=== PATIENT | male | born 1985 | race Caucasian/White ===

== ENCOUNTER 2019-01-09 14:19 | Outpatient (CLI) | payer OTHER ==
[2019-01-09 15:20] VITALS: BP 114/74
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
== END 2019-01-09 14:20 | disposition home or self-care (01) ==
LOC: SC 14:19
PROVIDERS: ATTEND Internal Medicine Pulmonary Disease
DX: G47.33 Obstructive sleep apnea (adult) (pediatric) (principal)
CPT/HCPCS: 99203; 99212

== ENCOUNTER 2019-03-15 13:41 | Outpatient (CLI) | payer OTHER ==
[2019-03-15 14:54] VITALS: BP 114/78
--- NOTE | 2019-03-15 14:54 | SLEEP CARE CONSULTATION ---
Information from patient questionnaire entered by Pat Villa. I have reviewed and concur with the information entered by Pat Villa. This document represents the service I personally performed and the decisions made by me, Yudith Diaz, RN, MSN, [employer]. History of Present Illness Previous diagnosis: Severe, Obstructive Sleep Apnea-Hypopnea Syndrome AHI: 39 Reason for CPAP/BiPAP follow up: first compliance after device update Equipment type: CPAP Equipment obtained from: [employer] Mask style: Full face Mask brand: Respironics (Dreamwear) Backup mask available: Yes Last cushion change: last night CPAP Compliance Data - Data Reviewed with Patient Average duration of nightly device use: 6.2 Compliance rate %: 100 Current pressure setting (cmH2O): 5-10 Humidity settin Heated hose settin Average residual AHI: 7.5 Central apnea: 0.9 Obstructive apnea: 2.9 Hypopnea: 3.7 Average large leak: zero Subjective Patient concerns: reports: nasal congestion ( recently), dry mouth, nose, throat (intermittent mouth dryness ). denies: aerophagia, mask discomfort, air blowing in eyes, mask leak noise, condensation in mask/hose, epistaxis Observed to snore while using device: No Current pressure setting perceived as: comfortable On therapy, patient: reports: sleeping better, more rested overall ( but intermittent fatigue. ). denies: drowsiness while driving Initial [place] Sleepiness Scale score: 7 Current [place] Sleepiness Scale score: 5 Allergies and Home Medications Known drug allergies: No Home medication list reviewed: Yes (anti inflammantory ointment prn for back beatriz n) Review of Systems Review of systems same as previous: Yes Physical Exam Blood Pressure: 114/78 Cuff size: long Heart Rate: 63 O2 Saturation: 98 Height: 6 ft Weight (kg): 230 lb Body Mass Index: 31.1 BMI Classification: Class 1 Impression and Plan 1. Obstructive Sleep Apnea-Hypopnea Syndrome, severe, with good treatment compliance but elevated residual AHIl. On CPAP therapy, the patient has better sleep quality and is more rested overall. For residual AHI, I will adjust his pressure tp [id number]. He was instructed to use ramp at initiation if needed. In addition, he was advised to contact this office if pressure change uncomfortable. For oral dryness, he is advised to increase humidity and or reduce heated hose. For his intermittent fatigue, I advised him to strive for a minimum of 7 hours of sleep. Currently he is averaging about 6 hours with CPAP. Patient's apnea severity and rationale for treatment to reduce apnea, improve sleep quality and reduce cardiovascular and cerebrovascular events was reviewed. He likes to camp and states he is not always able to use his CPAP. I checked his last sleep study and it does not show position of sleep. I discussed CPAP battery options. * * Change autoCPAP pressure to 10-15 cmH2O * Adjust humidity/heated hose * Notify me if snoring with mask or feeling that the pressure is too much or too little * obtain more sleep * Return for follow up in 2 months , or sooner if concerns arise I spent 100% of this [15][30] minute visit face to face with the patient with greater than 50% of this was spent time counseling the patient and coordination of care.
== END 2019-03-15 13:42 | disposition home or self-care (01) ==
LOC: SC 13:41
PROVIDERS: ATTEND Nurse Practitioner Family
DX: G47.33 Obstructive sleep apnea (adult) (pediatric) (principal)
CPT/HCPCS: 99212; 99214

== ENCOUNTER 2019-05-16 15:09 | Outpatient (CLI) | payer OTHER ==
--- NOTE | 2019-05-16 16:43 | SLEEP CARE CONSULTATION ---
Information from patient questionnaire entered by Danielle Pena. I have reviewed and concur with the information entered by Danielle Pena. This document represents the service I personally performed and the decisions made by me, Yudith Diaz, RN, MSN, [employer]. History of Present Illness Previous diagnosis: Severe, Obstructive Sleep Apnea-Hypopnea Syndrome AHI: 39 Reason for follow up: other (2 month -) Equipment type: CPAP Equipment obtained from: [employer] Mask style: Full face Mask brand: Respironics ([place]) Backup mask available: Yes Last cushion change: 3 weeks ago Prior sleep studies: Yes HPI additional information: The CPAP pressure was increased for elevated residual. However, it was waking patient to burping and mild abdominal distention even with use of ramp. Thus it was reduced to [id number] and is now comfortable and no further aerophagia. CPAP Compliance Data - Data Reviewed with Patient Average duration of nightly device use: 5h 46m Compliance rate %: 86.7 Current pressure setting (cmH2O): 8-10 Humidity settin Heated hose settin Average residual AHI: 4.8 (the last 2 weeks at lower pressure AHI is 6.0) Average large leak: 8s Subjective Missed days of use due to: reports: other (falling asleep without CPAP.) Patient concerns: reports: aerophagia (resolved with lower pressure ). denies: mask discomfort, air blowing in eyes, mask leak noise, condensation in mask/hose, nasal congestion, dry mouth, nose, throat, epistaxis Observed to snore while using device: No Current pressure setting perceived as: comfortable On therapy, patient: reports: sleeping better, awakening more refreshed, being more awake and alert during the day, more rested overall. denies: drowsiness while driving Initial [place] Sleepiness Scale score: 7 Current [place] Sleepiness Scale score: 5 Allergies and Home Medications Known drug allergies: No Home medication list reviewed: Yes Allergy and home medication list: Topical cream for back pain as needed. Review of Systems Review of systems same as previous: Yes (neck pain that was evaluated and manipulated with temporary relief. ) Physical Exam Blood Pressure: 110/80 Cuff size: long Heart Rate: 74 O2 Saturation: 98 Height: 6 ft 0.25 in Weight: 235 lb 9.6 oz (with boots / fatigues) Body Mass Index: 31.7 BMI Classification: Obesity Class 1 Impression and Plan 1. Obstructive Sleep Apnea-Hypopnea Syndrome, severe, with good treatment compliance and slightly elevated residual AHI. As noted in HPI, the pressure range was increased to lower residual AHI at last visit but caused discomfort from aerophagia. Current pressure has very mild increase in residual AHI at 6 which is significantly less than his HST average of 39. On CPAP therapy, the patient has better sleep quality and is more rested overall. To prevent from falling asleep without CPAP, he is advised to consider a bedtime alarm to wake him. He is more rested with more sleep. Thus he is advised to go to bed a little earlier a night with goal of obtaining a minimum of 7 hours, not 6 hours . Patient agreed with plan. Patient's apnea severity and rationale for treatment to reduce apnea, improve sleep quality and reduce cardiovascular and cerebrovascular events was reviewed. * Continue CPAP pressure at 8-10 cmH2O * obtain more sleep * bedtime alarm * Notify me if snoring with mask or feeling that the pressure is too much or too little * Attempt to lose weight * Return for follow up in 1 year , or sooner if concerns arise I spent 100% of this 27 minute visit face to face with the patient with greater than 50% of this was spent time counseling the patient and coordination of care.
[2019-05-16 16:44] VITALS: BP 110/80
== END 2019-05-16 15:10 | disposition home or self-care (01) ==
LOC: SC 15:09
PROVIDERS: ATTEND Nurse Practitioner Family
DX: G47.33 Obstructive sleep apnea (adult) (pediatric) (principal); E66.9 Obesity, unspecified; Z68.31 Body mass index [BMI] 31.0-31.9, adult
CPT/HCPCS: 99212; 99214

== ENCOUNTER 2020-05-29 15:09 | Outpatient (CLI) | payer OTHER ==
--- NOTE | 2020-05-29 15:37 | SLEEP CARE CONSULTATION ---
Information from patient questionnaire entered by Katie Reyna. I have reviewed and concur with the information entered by Katie Reyna. This document represents the service I personally performed and the decisions made by , Shae Servin ARNP. History of Present Illness Service Date and Time: 05/29/2020 1509 Previous diagnosis: Severe, Obstructive Sleep Apnea-Hypopnea Syndrome AHI: 39 Reason for follow up: annual (last seen 05/2019) Equipment type: CPAP Equipment obtained from: Other ([facility]; getting supplies as needed) Mask style: Full face Backup mask available: Yes (other mask) Last cushion change: 1 month Prior sleep studies: Yes Year and Where: 2007 [facility] HPI additional information: GARRETT HAY was diagnosed to have severe, AHI 39, obstructive sleep apnea- hypopnea syndrome and returned today for CPAP therapy annual follow-up. Sleep Study - Results Prior sleep studies: Yes CPAP Compliance Data - Data Reviewed with Patient Average duration of nightly device use: 4 h 17 min Compliance rate %: 60 Current pressure setting (cmH2O): 8-10 Humidity settin Heated hose settin Average residual AHI: 6.6 Average large leak: 50 sec Subjective Missed days of use due to: reports: travel Patient concerns: reports: aerophagia (sometimes). denies: mask discomfort, air blowing in eyes, mask leak noise, condensation in mask/hose, nasal congestion, dry mouth, nose, throat, epistaxis, other Observed to snore while using device: No Current pressure setting perceived as: comfortable On therapy, patient: reports: sleeping better, awakening more refreshed, being more awake and alert during the day, more rested overall. denies: drowsiness while driving Initial [place] Sleepiness Scale score: 7 (in 2019) Current [place] Sleepiness Scale score: 6 Allergies and Home Medications Home medication list reviewed: Yes (no changes) Review of Systems Review of systems same as previous: Yes (no changes) Physical Exam Heart Rate: 61 O2 Saturation: 98 Height: 6 ft 0.25 in Weight: 221 lb Body Mass Index: 29.7 BMI Classification: Overweight Impression and Plan 1. Obstructive Sleep Apnea-Hypopnea Syndrome, severe, with fair treatment compliance and fair apnea control with mildly elevated residual AHI. On CPAP therapy, the patient has better sleep quality and is more rested overall. The patients pressure will be changed to autoCPAP 9-12 cmH20 For elevation of residual AHI. Patient advised to contact me if pressure change is uncomfortable so that it can be adjusted. Goals for apnea control discussed. Patient's apnea severity and rationale for treatment to reduce apnea, improve sleep quality and reduce cardiovascular and cerebrovascular events was reviewed. * Changeauto CPAP pressure to 9-12 cmH2O * Notify me if snoring with mask or feeling that the pressure is too much or too little * Attempt to lose weight * Call this office if any problems using CPAP * Return for follow up in 1-2 months, or sooner if concerns arise Counseling Topics: Spare mask, Weight loss health impact Visit Type: In Office Time Spent with Patient (minutes): 19 Provider Statement: I spent 100% of the Face to Face Visit with the patient with greater than 50% spent counseling the patient and coordination of care.
== END 2020-05-29 15:10 | disposition home or self-care (01) ==
LOC: SC 15:09
PROVIDERS: ATTEND Nurse Practitioner Family
DX: G47.33 Obstructive sleep apnea (adult) (pediatric) (principal); E66.3 Overweight; Z68.29 Body mass index [BMI] 29.0-29.9, adult
CPT/HCPCS: 99212; 99213

== ENCOUNTER 2020-07-09 14:36 | Outpatient (CLI) | payer OTHER ==
--- NOTE | 2020-07-09 14:42 | SLEEP CARE CONSULTATION ---
Information from patient questionnaire entered by Pat Villa. I have reviewed and concur with the information entered by Pat Villa. This document represents the service I personally performed and the decisions made by , Shae Servin ARNP. History of Present Illness Service Date and Time: 07/09/2020 1500 Previous diagnosis: Severe, Obstructive Sleep Apnea-Hypopnea Syndrome AHI: 39 (in 2007) Reason for follow up: other (6 week with pressure change) Equipment type: CPAP Equipment obtained from: Other ([facility]; getting supplies as needed) Mask style: Full face Backup mask available: Yes (other mask) Last cushion change: month Prior sleep studies: Yes Year and Where: 2007 - [facility] additional information: GARRETT HAY was diagnosed to have severe, AHI 39, obstructive sleep apnea- hypopnea syndrome and returns via Telehealth visit today for CPAP therapy 6 week pressure change follow-up. CPAP Compliance Data - Data Reviewed with Patient Average duration of nightly device use: 5 hr 27 min Compliance rate %: 80 Current pressure setting (cmH2O): 8-11 Humidity settin Heated hose settin Average residual AHI: 3.5 Average large leak: 4 min 55 sec Subjective Patient concerns: reports: aerophagia (still getting a little bit, but much better). denies: mask discomfort, air blowing in eyes, mask leak noise, condensation in mask/hose, nasal congestion, dry mouth, nose, throat, epistaxis, other Observed to snore while using device: No Current pressure setting perceived as: comfortable On therapy, patient: reports: sleeping better, awakening more refreshed, being more awake and alert during the day, more rested overall. denies: drowsiness while driving Initial [place] Sleepiness Scale score: 7 (in 2019) Allergies and Home Medications Drug allergies reviewed: Yes (NKDA) Home medication list reviewed: Yes (no changes) Review of Systems Review of systems same as previous: Yes (no changes) Physical Exam Vital signs obtained and entered by: Telehealth visit to limit exposure during Covid pandemic Height: 6 ft 0.25 in Impression and Plan 1. Obstructive Sleep Apnea-Hypopnea Syndrome, severe, with good treatment compliance and good apnea control. On CPAP therapy, the patient has better sleep quality and is more rested overall. He still gets a little aerophagia but is satisfied with current pressure range. He states it is much improved with pressure change and does not feel we need to change again. Patient advised to contact me if pressure change is uncomfortable so that it can be adjusted. He is otherwise compliant with good apnea control and we will follow up with him next year. Patient's apnea severity and rationale for treatment to reduce apnea, improve sleep quality and reduce cardiovascular and cerebrovascular events was reviewed. * Continue auto CPAP pressure at 8-11 cmH2O * Notify me if snoring with mask or feeling that the pressure is too much or too little * Attempt to lose weight * Call this office if any problems using CPAP * Return for follow up in 1 year , or sooner if concerns arise Counseling Topics: Weight loss health impact Visit Type: Telehealth Video Video Type: Doximity Patient Location: Home Location of Provider: Office Patient agrees and consents to this telehealth visit type: Yes Patient agrees to have their insurance billed: Yes Time Spent with Patient (minutes): 15 Provider Statement: I spent 100% of the Telehealth Video Call with the patient with greater than 50% spent counseling the patient and coordination of care.
== END 2020-07-09 14:37 | disposition home or self-care (01) ==
LOC: SC 14:36
PROVIDERS: ATTEND Nurse Practitioner Family
DX: G47.33 Obstructive sleep apnea (adult) (pediatric) (principal)

== ENCOUNTER 2021-03-19 15:52 | Outpatient (CLI) | payer OTHER ==
--- NOTE | 2021-03-19 16:27 | SLEEP CARE CONSULTATION ---
Information from patient questionnaire entered by Katie Reyna. I have reviewed and concur with the information entered by Katie Reyna. This document represents the service I personally performed and the decisions made by , Shae Servin ARNP. History of Present Illness Service Date and Time: 03/19/2021 1552 Previous diagnosis: Severe, Obstructive Sleep Apnea-Hypopnea Syndrome AHI: 39 (in 2007) Reason for follow up: other (9 month, CPAP recall) Equipment type: CPAP Equipment obtained from: Other ([facility]; getting supplies as needed) Mask style: Full face Backup mask available: Yes (old mask) Last cushion change: 1 month Prior sleep studies: Yes Year and Where: 2007 - [facility] HPI additional information: GARRETT HAY was diagnosed to have severe, AHI 39, obstructive sleep apnea- hypopnea syndrome and returned today for CPAP therapy 9 month follow-up. CPAP Compliance Data - Data Reviewed with Patient Average duration of nightly device use: 6 h 1 in Compliance rate %: 82.8 Current pressure setting (cmH2O): 9-12 Humidity settin Heated hose settin Average residual AHI: 3.1 Average large leak: 1 min 16 sec Subjective Patient concerns: reports: aerophagia (not all the time, here and there), other (Headache, once the other day). denies: mask discomfort, air blowing in eyes, mask leak noise, condensation in mask/hose, nasal congestion, dry mouth, nose, throat, epistaxis Observed to snore while using device: No Current pressure setting perceived as: comfortable On therapy, patient: reports: sleeping better, awakening more refreshed, being more awake and alert during the day, more rested overall. denies: drowsiness while driving Initial [place] Sleepiness Scale score: 7 (in 2019) Current [place] Sleepiness Scale score: 6 Allergies and Home Medications Home medication list reviewed: Yes (no changes) Review of Systems Review of systems same as previous: Yes (no changes) Physical Exam Heart Rate: 82 O2 Saturation: 97 Height: 6 ft 0.25 in Weight: 240 lb (with boots and fatigues on) Body Mass Index: 32.3 BMI Classification: Obese Impression and Plan 1. Obstructive Sleep Apnea-Hypopnea Syndrome, severe, with good treatment compliance and good apnea control. On CPAP therapy, the patient has better sleep quality and is more rested overall. Patient comes in today due to the recall and wanting to replace his device that is 2 to 3 years old. Patient does have [employer] insurance which has said they will replace these devices that are on the recall. Patient has already registered their device for the recall. Patient denies any black particles seen in machine or hoses, any unusual odors coming from device. Patient has not experienced any physical symptoms such as upper airway irritation, headache, skin or eye irritation, asthma, nausea/vomiting, difficulty breathing or chest pain. Patient informed that they may use an inline CPAP filter that they can obtain online to reduce chance of any particles being inhaled or ingested. We will make a prescription for a replacement device and have patient follow-up 1 month after he gets the new machine. Patient voiced understanding and agreement with plan. Patient's apnea severity and rationale for treatment to reduce apnea, improve sleep quality and reduce cardiovascular and cerebrovascular events was reviewed. Patient was encouraged to lose weight for their overall health and to reduce apneas. * Continue auto CPAP pressure at 9-12 cmH2O * Replacement device for one on recall * Notify me if snoring with mask or feeling that the pressure is too much or too little * Attempt to lose weight * Call this office if any problems using CPAP * Return for follow up one month after obtaining new device, or sooner if concerns arise Counseling Topics: Spare mask, Weight loss health impact Visit Type: In Office Time Spent with Patient (minutes): 18 Provider Statement: I spent 100% of the Face to Face Visit with the patient with greater than 50% spent counseling the patient and coordination of care.
== END 2021-03-19 15:53 | disposition home or self-care (01) ==
LOC: SC 15:52
PROVIDERS: ATTEND Nurse Practitioner Family
DX: G47.33 Obstructive sleep apnea (adult) (pediatric) (principal); E66.9 Obesity, unspecified; Z68.32 Body mass index [BMI] 32.0-32.9, adult
CPT/HCPCS: 99212; 99213

== ENCOUNTER 2022-12-07 14:44 | Outpatient (CLI) | payer OTHER ==
--- NOTE | 2022-12-07 15:40 | Sleep Patient Instructions ---
Sleep Center Visit Summary - Patient Visit Information Reason for Visit: Annual visit for CPAP therapy - Patient Instructions Additional Instructions: You will continue with CPAP therapy with pressure set at 9-12 cmH2O. A supply prescription will be updated with your DME. We encourage you to continue to try to lose weight. Please follow up with the sleep care office in 1 year. - Clinic Information Contact: [facility] [address] [place] [address] [email or web address] T: [phone]
[2022-12-07 15:46] VITALS: BP 142/86
--- NOTE | 2022-12-07 15:46 | SLEEP CARE CONSULTATION ---
Information from patient questionnaire entered by Darwin Yun. I have reviewed and concur with the information entered by Darwin Yun. This document represents the service I personally performed and the decisions made by me, Shae Servin ARNP. History of Present Illness Service Date and Time: 12/07/2022 1444 Previous diagnosis: Severe, Obstructive Sleep Apnea-Hypopnea Syndrome AHI: 39 (in 2007) Reason for follow up: annual (LAST SEEN 03/2021) Equipment type: CPAP ([employer] Dreamstation; s/u 05/2020) Equipment obtained from: Other ([facility]; getting supplies as needed) Mask style: Full face Mask brand: Respironics (Dreamwear) Backup mask available: Yes (old mask) Last cushion change: 1 month Prior sleep studies: Yes Year and Where: 2007 - [facility] HPI additional information: GARRETT HAY was diagnosed to have severe, AHI 39, obstructive sleep apnea- hypopnea syndrome and returned today for CPAP therapy annual follow-up. Sleep Study - Results Prior sleep studies: Yes Year and Where: 2007 - [facility] CPAP Compliance Data - Data Reviewed with Patient Average duration of nightly device use: 5 hours 13 minutes Compliance rate %: 60 (155/180 days used) Current pressure setting (cmH2O): 9-12 Average residual AHI: 2.6 Central apnea: 0.2 Obstructive apnea: 1.5 Hypopnea: 0.9 Average large leak: 29 secs Subjective Missed days of use due to: reports: other (fall asleep without mask, put on later and not get over 4 hours) Patient concerns: reports: aerophagia (sometimes), dry mouth, nose, throat (once in a while). denies: mask discomfort, air blowing in eyes, mask leak noise, c ondensation in mask/hose, nasal congestion, epistaxis Observed to snore while using device: No (sometimes) Current pressure setting perceived as: comfortable On therapy, patient: reports: sleeping better, awakening more refreshed, being more awake and alert during the day, more rested overall. denies: drowsiness while driving Initial [place] Sleepiness Scale score: 7 (in 2019) Current [place] Sleepiness Scale score: 7 (12/07/22) Allergies and Home Medications Known drug allergies: No Drug allergies reviewed: Yes Home medication list reviewed: Yes (Ezetimibe/Rosuvastatin) Review of Systems Review of systems same as previous: Yes (no changes) Physical Exam Vital signs obtained and entered by: DARWIN Christopher MA Blood Pressure: 142/86 (LEFT ARM) Cuff size: regular Heart Rate: 84 O2 Saturation: 96 Height: 6 ft 0.25 in Weight: 238 lb 3.2 oz Weight change since last visit: 2 lb loss Body Mass Index: 32.1 BMI Classification: Obese Impression and Plan 1. Obstructive Sleep Apnea-Hypopnea Syndrome, severe, with fair treatment c ompliance and good apnea control. On CPAP therapy, the patient has better sleep quality and is more rested overall. He states he will fall asleep without mask on and then wake up 3+ hours later and put it on. To prevent falling asleep without CPAP, patient advised to set a bedtime alarm on their phone for use while watching TV on couch or in bed. Patient has significant improvement of their sleep apnea and is satisfied with current CPAP therapy. Patient's apnea severity and rationale for treatment to reduce apnea, improve sleep quality and reduce cardiovascular and cerebrovascular events was reviewed. 2. Obesity, unspecified. Currently patients BMI is 32.1. Obesity increases the risk of apnea, CPAP pressure requirements and overall health risks especially cardiovascular and diabetes. Thus patient is advised to lose weight. * Continue auto CPAP pressure at 9-12 cmH2O * Update supplies * Notify me if snoring with mask or feeling that the pressure is too much or too little * Attempt to lose weight * Call this office if any problems using CPAP * Return for follow up in 1 year, or sooner if concerns arise Counseling Topics: Spare mask, Weight loss health impact Visit Type: In Office Time Spent with Patient (minutes): 20 Provider Statement: I spent 100% of the Face to Face Visit with the patient with greater than 50% spent counseling the patient and coordination of care.
== END 2022-12-07 14:45 | disposition home or self-care (01) ==
LOC: SC 14:44
PROVIDERS: ATTEND Nurse Practitioner Family
DX: G47.33 Obstructive sleep apnea (adult) (pediatric) (principal); E66.9 Obesity, unspecified; Z68.32 Body mass index [BMI] 32.0-32.9, adult
CPT/HCPCS: 99212; 99213

== ENCOUNTER 2023-06-29 12:59 | Outpatient (CLI) | payer OTHER ==
--- NOTE | 2023-06-29 21:19 | MRI Report ---
PROCEDURE: SHOULDER WO - LT INDICATIONS: LEFT SHOULDER PAIN TECHNIQUE: Noncontrast oblique coronal T2 fast spin echo with fat saturation, oblique sagittal T1 spin echo and T2 fast spin echo with fat saturation, axial T1 spin echo and T2 fast spin echo with fat saturation t hrough the shoulder. COMPARISON: None. FINDINGS: Image quality: Excellent. Rotator cuff: Low-grade bursal surface partial-thickness tear involving distal supraspinatus at its i nsertion on humeral head extending to musculotendinous junction. Distal infraspinatus and subscapular is tendinosis is seen. No full-thickness rotator cuff tendon rupture. No rotator cuff muscle atrophy on sagittal images. Bones and bursae: No bone marrow contusions or fractures. Moderate acromioclavicular joint osteoarth ritic changes are noted with joint space narrowing, subchondral sclerosis and downward osteophyte for mation depressing on musculotendinous junction of supraspinatus. The acromion demonstrates convention al anatomy, without an os acromiale. No pathologic subacromial/subdeltoid bursal fluid is present. Capsule and soft tissues: There is fraying of anterior inferior labrum with T2 hyperintense signal at 5 to 6:00 position suggestive of anterior inferior labral tear. The long head of the biceps tendon d emonstrates appears thickened. The rotator interval appears normal, without fibrosis. The coracohume ral ligament is normal in thickness. IMPRESSION: 1. Low-grade bursal surface partial-thickness tear involving distal supraspinatus extending to muscul otendinous junction. Distal infraspinatus and subscapularis tendinosis. No full-thickness rotator cuf f tendon rupture. 2. Moderate acromioclavicular joint osteoarthritis. No fracture or dislocation. No significant joint effusion or subacromial subdeltoid bursal fluid. 3. Finding is suggestive of anterior inferior labral tear at 5 to 6:00 position. 4. Proximal long head of biceps tendinosis. Reviewed by: Richard Shelley MD on 06/29/2023 9:17 PM PST Approved by: Richard Shelley MD on 06/29/2023 9:17 PM PST Station ID: [id number]
== END 2023-06-29 13:00 | disposition home or self-care (01) ==
LOC: DI 12:59
DX: M75.112 Incomplete rotator cuff tear or rupture of left shoulder, not specified as traumatic (principal); M19.012 Primary osteoarthritis, left shoulder; M67.814 Other specified disorders of tendon, left shoulder